=== PATIENT | male | born 1955 | race Caucasian/White ===

== ENCOUNTER 2016-09-09 07:36 | Emergency (ER) | payer MEDICARE, SELFPAY ==
[2016-09-09] MEDS ORDERED: HYDROmorphone 0.5 MG/0.5 ML Syringe IVPUSH ONE (08:12)
[2016-09-09] MEDS ORDERED: Ondansetron 4 MG/2 ML SDV IVPUSH ONE (08:12)
[2016-09-09] MEDS ORDERED: Sodium Chloride 0.9% 1,000 ML IV SCH (08:15)
--- NOTE | 2016-09-09 08:18 | EDM.PDOC ---
ED HPI GI/ABDOMINAL - General Chief Complaint: Abdominal Pain Stated Complaint: SIDE PAIN VOMITING Time Seen by Provider: 09/09/16 08:13 Source: Reports: Patient History Limitations: Reports: No limitations - History of Present Illness INITIAL COMMENTS - FREE TEXT/NARRATIVE: pt woke up with a sudden onset of lef lower abdomanal pain. This would be more supra pupic. Timing/Duration: Reports: Getting worse, Other (pt is rating his pain at a 8. ) Location: LLQ Quality: Reports: fullness Associated Symptoms: Reports: testicular pain, groin pain, nausea/vomiting - Related Data Allergies/ADRs: Allergies Allergy/AdvReac Type Severity Reaction Status Date / Time morphine AdvReac Unknown Vomiting Verified 07/06/16 07:27 penicillin AdvReac Unknown Nausea and Verified 07/06/16 07:27 Vomiting Home Meds: Home Meds Phenytoin 200 mg PO BID 12/12/14 [History] Albuterol [Proventil Neb Soln] 3 ml INH BID 07/21/15 [History] Triamcinolone Acetonide [Kenalog 0.1% Crm] 1 applic TOP ASDIRECTED 07/02/16 [ History] Past Medical History HEENT History: Reports: Impaired vision Other HEENT History: wears reading glasses Cardiovascular History: Reports: Other (see below) Other Cardiovascular History: "broken rib lacerated heart" Respiratory History: Reports: Asthma, COPD Gastrointestinal History: Reports: GERD Musculoskeletal History: Reports: Back pain, chronic, Fracture Other Musculoskeletal History: right ankle with titanium plate, broke back 3 times and shoulder, pelvis, both hips. Plate in neck Neurological History: Reports: Concussion, Head trauma, Seizure Other Oncologic History: melanoma Dermatologic History: Reports: Psoriasis, Other (see below) Other Dermatologic History: skin cancer - Infectious Disease History Infectious Disease History: Reports: Chicken pox, Measles - Past Surgical History Neurological Surgical History: Reports: Spinal fusion Musculoskeletal Surgical History: Reports: Shoulder surgery, Other (see below) Other Musculoskeletal Surgeries/Procedures:: bilateral hip repair Oncologic Surgical History: Reports: Lumpectomy Dermatological Surgical History: Reports: Skin biopsy Social & Family History - Family History Family Medical History: Noncontributory - Tobacco Use Smoking Status *Q: Never Smoker Years of Tobacco use: 20 Used Tobacco, but Quit: Yes Month Tobacco Last Used: 30 years ago Second Hand Smoke Exposure: Yes - Caffeine Use Caffeine Use: Reports: None - Alcohol Use Days Per Week of Alcohol Use: 7 Number of Drinks Per Day: 6 Total Drinks Per Week: 42 - Recreational Drug Use Recreational Drug Use: Yes Drug Use in Last 12 Months: Yes Recreational Drug Type: Reports: Marijuana/Hashish Recreational Drug Use Frequency: Daily Recreational Drug Last Use: yesterday ED ROS GENERAL - Review of Systems Review Of Systems: See Below Constitutional: Reports: diaphoresis, other (Pt states he was very diaphoretic at the time at home when the pain was so bad. ) HEENT: Reports: No symptoms Respiratory: Reports: No Symptoms Cardiovascular: Reports: No symptoms Endocrine: Reports: no symptoms GI/Abdominal: Reports: Abdominal pain, Nausea, Vomiting : Reports: other (Pain in the left testicle. ) Musculoskeletal: Reports: no symptoms Skin: Reports: no symptoms Neurological: Reports: No Symptoms ED EXAM, GI/ABD - Physical Exam Exam: See Below Text/Narrative:: Pt arrived with acute left groin pain. This started suddenly this am. He was very uncomfortable and was quite diaphoretic, he became nauseated and he vomited. Exam Limited By: No limitations General Appearance: alert, moderate distress Eyes: bilateral: normal appearance, EOMI Ears: normal TMs Nose: normal inspection Throat/Mouth: Normal inspection Head: atraumatic Neck: normal inspection Respiratory/Chest: no respiratory distress Cardiovascular: other ( bp was quite elevated. ) GI/Abdominal: tenderness, other ( Pt has definite tenderness in the left supra pupic area. His left testicle is not painful at this time and is not tender to palpate. ) Back Exam: normal inspection Extremities: normal inspection Neurological: alert, oriented Psychiatric: normal affect Course - Vital Signs Last Recorded V/S: Last Vital Signs Temp 36.5 C 09/09/16 07:51 Pulse 68 09/09/16 09:54 Resp 16 09/09/16 09:54 BP 144/84 H 09/09/16 09:54 Pulse Ox 95 09/09/16 09:54 - Orders/Labs/Meds Orders: Active Orders 24 hr Category Date Time Status Iopamidol [Isovue-300 (61%)] Med 09/09/16 13:00 Active 100 ml IV . DIRECTED PRN Sodium Chloride 0.9% [Normal Saline] 1,000 ml Med 09/09/16 08:15 Active IV ASDIRECTED Sodium Chloride 0.9% [Saline Flush] Med 09/09/16 13:00 Active 10 ml FLUSH . DIRECTED PRN Medication Orders Sodium Chloride (Normal Saline) 1,000 mls @ 999 mls/hr IV ASDIRECTED [facility] Last Admin: 09/09/16 08:24 Dose: 999 mls/hr Iopamidol (Isovue-300 (61%)) 100 ml IV . DIRECTED PRN PRN Reason: RADIOLOGY EXAM Stop: 09/09/16 13:01 Last Admin: 09/09/16 10:00 Dose: 100 ml Sodium Chloride (Saline Flush) 10 ml FLUSH . DIRECTED PRN PRN Reason: [id number] EXAM Stop: 09/09/16 13:01 Last Admin: 09/09/16 10:00 Dose: 10 ml Labs: Laboratory Tests 09/09/16 09/09/16 09/09/16 Range/Units 08:25 08:26 08:26 WBC 14.2 H (4.5-11.0) K/uL RBC 4.61 (4.30-5.90) M/uL Hgb 14.4 (12.0-15.0) g/dL Hct 43.9 (40.0-54.0) % MCV 95 (80-98) fL MCH 31 (27-31) pg MCHC 33 (32-36) % Plt Count 363 (150-400) K/uL Neut % (Auto) 74 H (36-66) % Lymph % (Auto) 15 L (24-44) % [place] % (Auto) 8 H (2-6) % Eos % (Auto) 2 (2-4) % Baso % (Auto) 1 (0-1) % Sodium 146 (140-148) mmol/L Potassium 4.4 (3.6-5.2) mmol/L Chloride 106 (100-108) mmol/L Carbon Dioxide 31 (21-32) mmol/L Anion Gap 9.4 (5.0-14.0) mmol/L BUN 18 D (7-18) mg/dL Creatinine 0.9 (0.8-1.3) mg/dL Est Cr Clr Drug Dosing 93.41 mL/min Estimated GFR (MDRD) > 60 (>60) Glucose 99 (74-106) mg/dL Calcium 8.4 L (8.5-10.1) mg/dL Total Bilirubin 0.2 (0.2-1.0) mg/dL AST 22 (15-37) U/L ALT 37 D (12-78) U/L Alkaline Phosphatase 151 H (46-116) U/L C-Reactive Protein (0.0-0.3) mg/dL Total Protein 7.3 (6.4-8.2) g/dL Albumin 3.6 (3.4-5.0) g/dL Globulin 3.7 H (2.3-3.5) g/dL Albumin/Globulin Ratio 1.0 L (1.2-2.2) Urine Color Yellow Urine Appearance Clear Urine pH 6.0 (4.5-8.0) Ur Specific [place] 1.020 (1.008-1.030) Urine Protein Negative (NEGATIVE) mg/dL Urine Glucose (UA) Normal (NEGATIVE) mg/dL Urine Ketones Negative (NEGATIVE) mg/dL Urine Occult Blood Negative (NEGATIVE) Urine Nitrite Negative (NEGAITVE) Urine Bilirubin Negative (NEGATIVE) Urine Urobilinogen Normal (NORMAL) mg/dL Ur Leukocyte Esterase Negative (NEGATIVE) Urine RBC 0-5 (0-5) Urine WBC 0-5 (0-5) Ur Epithelial Cells Not seen Amorphous Sediment Rare Urine Bacteria Not seen Urine Mucus Rare 09/09/16 Range/Units 08:50 WBC (4.5-11.0) K/uL RBC (4.30-5.90) M/uL Hgb (12.0-15.0) g/dL Hct (40.0-54.0) % MCV (80-98) fL MCH (27-31) pg MCHC (32-36) % Plt Count (150-400) K/uL Neut % (Auto) (36-66) % Lymph % (Auto) (24-44) % [place] % (Auto) (2-6) % Eos % (Auto) (2-4) % Baso % (Auto) (0-1) % Sodium (140-148) mmol/L Potassium (3.6-5.2) mmol/L Chloride (100-108) mmol/L Carbon Dioxide (21-32) mmol/L Anion Gap (5.0-14.0) mmol/L BUN (7-18) mg/dL Creatinine (0.8-1.3) mg/dL Est Cr Clr Drug Dosing mL/min Estimated GFR (MDRD) (>60) Glucose (74-106) mg/dL Calcium (8.5-10.1) mg/dL Total Bilirubin (0.2-1.0) mg/dL AST (15-37) U/L ALT (12-78) U/L Alkaline Phosphatase (46-116) U/L C-Reactive Protein 2.94 H (0.0-0.3) mg/dL Total Protein (6.4-8.2) g/dL Albumin (3.4-5.0) g/dL Globulin (2.3-3.5) g/dL Albumin/Globulin Ratio (1.2-2.2) Urine Color Urine Appearance Urine pH (4.5-8.0) Ur Specific [place] (1.008-1.030) Urine Protein (NEGATIVE) mg/dL Urine Glucose (UA) (NEGATIVE) mg/dL Urine Ketones (NEGATIVE) mg/dL Urine Occult Blood (NEGATIVE) Urine Nitrite (NEGAITVE) Urine Bilirubin (NEGATIVE) Urine Urobilinogen (NORMAL) mg/dL Ur Leukocyte Esterase (NEGATIVE) Urine RBC (0-5) Urine WBC (0-5) Ur Epithelial Cells Amorphous Sediment Urine Bacteria Urine Mucus Meds: Medications Generic Name Dose Route Start Last Admin Trade Name Freq PRN Reason Stop Dose Admin Sodium Chloride 1,000 mls @ 999 mls/hr 09/09/16 08:15 09/09/16 08:24 Normal Saline IV 999 mls/hr ASDIRECTED DORA Administration Iopamidol 100 ml 09/09/16 13:00 09/09/16 10:00 Isovue-300 (61%) IV 09/09/16 13:01 100 ml . DIRECTED PRN Administration RADIOLOGY EXAM Sodium Chloride 10 ml 09/09/16 13:00 09/09/16 10:00 Saline Flush FLUSH 09/09/16 13:01 10 ml . DIRECTED PRN Administration [id number] EXAM Discontinued Medications Generic Name Dose Route Start Last Admin Trade Name Freq PRN Reason Stop Dose Admin Hydromorphone HCl 0.5 mg 09/09/16 08:12 09/09/16 08:22 Dilaudid IVPUSH 09/09/16 08:13 0.5 mg ONETIME ONE Administration Hydromorphone HCl 1 mg 09/09/16 09:52 09/09/16 09:58 Dilaudid IVPUSH 09/09/16 09:53 1 mg ONETIME ONE Administration Lorazepam 0.5 mg 09/09/16 08:58 09/09/16 09:09 Ativan IVPUSH 09/09/16 08:59 0.5 mg ONETIME ONE Administration Ondansetron HCl 4 mg 09/09/16 08:12 09/09/16 08:18 Zofran IVPUSH 09/09/16 08:13 4 mg ONETIME ONE Administration - Re-Assessments/Exams Free Text/Narrative Re-Assessment/Exam: 09/09/16 09:58 pt was found to have a wbc which is elevated. His crp is elevated. He had a cat scan which showed a bout 1/2 of his left kidney was infarcted. He has not had trauma to the area. His urine looks completely clear. The rest of the cat scan was normal. 09/09/16 10:01 Departure - Departure Time of Disposition: 10:04 Disposition: DC/Tfer to Acute Hospital 02 Condition: fair Clinical Impression: Ischemia and infarction of kidney, Seizure disorder, AA (alcohol abuse) Referrals: Jonathan Causey MD [Primary Care Provider] - Forms: ED Department Discharge Care Plan Goals: transfer to [facility]. - My Orders Last 24 Hours: My Active Orders 09/09/16 08:15 Sodium Chloride 0.9% [Normal Saline] 1,000 ml IV ASDIRECTED 09/09/16 13:00 Iopamidol [Isovue-300 (61%)] 100 ml IV . DIRECTED PRN Sodium Chloride 0.9% [Saline Flush] 10 ml FLUSH . DIRECTED PRN - Assessment/Plan Last 24 Hours: My Active Orders 09/09/16 08:15 Sodium Chloride 0.9% [Normal Saline] 1,000 ml IV ASDIRECTED 09/09/16 13:00 Iopamidol [Isovue-300 (61%)] 100 ml IV . DIRECTED PRN Sodium Chloride 0.9% [Saline Flush] 10 ml FLUSH . DIRECTED PRN
[2016-09-09] MEDS ORDERED: LORazepam 2 MG/ML MDV IVPUSH ONE (08:58)
--- NOTE | 2016-09-09 09:44 | CT ---
Abdomen Pelvis w Cont Total DLP 674 mGycm. INDICATION: Pain in the left suprapupic area. COMPARISON: None. FINDINGS: Wedge-shaped areas of decreased enhancement involving the left kidney, most marked in the lower pole concerning for infarcts. The proximal and mid portion of the main left renal artery appea r patent allowing for limitations of portal venous phase imaging. Probable benign hemangiomas in the right hepatic lobe. Fat-containing inguinal hernias, larger on the left. Calcified granuloma right lower lobe. Old left rib fractures. Tiny fat-containing periumbilical hernia. Old traumatic change right ilium. Advanced compression fracture of L1, minimally progressed since 02/02/2012. Remainder unr emarkable. IMPRESSION: New wedge-shaped areas of nonenhancement of the left kidney, highly concerning for renal infarct. Pyelonephritis could have a similar appearance. Recommend correlation with urinalysis. Findings discussed with Dr. Barros by telephone at 9:40 AM on 09/09/2016.
[2016-09-09] MEDS ORDERED: HYDROmorphone 1 MG/ML Syringe IVPUSH ONE (09:52)
[2016-09-09 09:55] VITALS: BP 144/84
[2016-09-09] MEDS ORDERED: Albuterol 0.083% 2.5 MG/3 ML Neb Soln NEB ONE (10:17)
[2016-09-09] MEDS ORDERED: Albuterol 0.083% 2.5 MG/3 ML Neb Soln ONE (10:18)
[2016-09-09] MEDS ORDERED: Sodium Chloride 0.9% 10 ML Syringe FLUSH PRN (13:00)
[2016-09-09] MEDS ORDERED: Iopamidol 612 MG/ML 100 ML Bottle IV PRN (13:00)
== END 2016-09-09 10:38 ==
LOC: JP.ED 07:36
DX: N28.0 Ischemia and infarction of kidney (principal); G40.909 Epilepsy, unspecified, not intractable, without status epilepticus; F10.10 Alcohol abuse, uncomplicated; J45.909 Unspecified asthma, uncomplicated; J44.9 Chronic obstructive pulmonary disease, unspecified; K21.9 Gastro-esophageal reflux disease without esophagitis; G89.29 Other chronic pain; M54.9 Dorsalgia, unspecified; Z98.890 Other specified postprocedural states; Z85.828 Personal history of other malignant neoplasm of skin; Z79.899 Other long term (current) drug therapy; Z88.0 Allergy status to penicillin; Z88.5 Allergy status to narcotic agent; Z87.891 Personal history of nicotine dependence
CPT/HCPCS: 36415; 74177; 80053; 81001; 85025; 86140; 94640; 96361; 96374; 96375; 96376; 99285; J1170; J2060; J2405; J7040; J7050; Q9967

== ENCOUNTER 2022-04-27 07:41 | Day surgery (SDC) | payer MEDICARE ==
[~2022-04-27 07:41] MED LIST: Midazolam 1 MG/ML 2 ML SDV ONE; Propofol 200 MG/20 ML SDV ONE; fentaNYL 50 MCG/ML SDV ONE
[2022-04-27] MEDS ORDERED: Lactated Ringers 1,000 ML IV SCH (08:30)
[2022-04-27] MEDS ORDERED: Propofol 200 MG/20 ML SDV ONE (09:28)
[2022-04-27 11:01] VITALS: BP 131/95; PULSE 54
== END 2022-04-27 11:15 | disposition home or self-care (01) ==
LOC: JP.SDS 07:41
PROVIDERS: ATTEND Student in an Organized Health Care Education/Training Program
DX: Z12.11 Encounter for screening for malignant neoplasm of colon (principal); D12.0 Benign neoplasm of cecum; D12.3 Benign neoplasm of transverse colon; D12.5 Benign neoplasm of sigmoid colon; E66.9 Obesity, unspecified; J44.9 Chronic obstructive pulmonary disease, unspecified; K64.8 Other hemorrhoids; Z68.28 Body mass index [BMI] 28.0-28.9, adult; Z79.899 Other long term (current) drug therapy; Z88.0 Allergy status to penicillin; Z88.6 Allergy status to analgesic agent
CPT/HCPCS: 36415; 45380; 85610; 88305; J2250; J2704; J3010; J7120

== ENCOUNTER 2022-06-13 09:09 | Emergency (ER) | payer MEDICARE ==
[2022-06-13 09:30] VITALS: BP 114/81; PULSE 102
[2022-06-13] MEDS ORDERED: Ketorolac 30 MG/ML SDV IM ONE (09:34)
== END 2022-06-13 11:20 | disposition home or self-care (01) ==
LOC: JP.ED 09:09
DX: R07.89 Other chest pain (principal); J44.9 Chronic obstructive pulmonary disease, unspecified; Z88.5 Allergy status to narcotic agent; Z88.0 Allergy status to penicillin; Z79.899 Other long term (current) drug therapy; W00.0XXA Fall on same level due to ice and snow, initial encounter
CPT/HCPCS: 71101-26; 71101-LT; 73030-26-LT; 73030-LT; 96372; 99283; 99284

== ENCOUNTER 2023-07-18 06:48 | Emergency (ER) | payer MEDICARE ==
[2023-07-18] MEDS: HYDROmorphone 0.5 MG/0.5 ML Syringe IVPUSH PRN (08:04)
[2023-07-18] MEDS: Sodium Chloride 0.9% 1,000 ML IV ONE (08:04)
[2023-07-18 08:07] VITALS: BP 117/77; PULSE 91
[2023-07-18 08:11] LABS: BASE EXCESS VENOUS 2.4 mm/L; BICARBONATE,VENOUS 25.7 mmol/L; CARBOXYHEMOGLOBIN 1.7 % (0.0-1.6); METHEMOGLOBIN 0.8 %; O2 SATURATION VENOUS 96.2; OXYHEMOGLOBIN 93.8 %; PH,VENOUS 7.456 (7.350-7.450); PO2 VENOUS 76.8 mm/Hg; TOTAL HEMOGLOBIN 14.1 g/dL (13.5-18.0)
[2023-07-18 08:13] LABS: BASOPHILS ABSOLUTE AUTO 0.05 K/uL (0.00-0.10); BASOPHILS PERCENT AUTO 0.4 % (0.1-1.3); EOSINOPHILS ABSOLUTE AUTO 0.05 K/uL (0.00-0.40); EOSINOPHILS PERCENT AUTO 0.4 % (0.0-5.4); HEMATOCRIT 39.7 % (38.4-49.7); HEMOGLOBIN 13.7 g/dL (12.9-16.9); IMMATURE GRAN ABSOLUTE AUTO 0.03 K/uL (0.00-0.23); IMMATURE GRAN PERCENT AUTO 0.3 % (0.0-0.7); LYMPHOCYTES ABSOLUTE AUTO 0.69 K/uL (0.8-3.3); LYMPHOCYTES PERCENT AUTO 5.8 % (11.4-47.7); MEAN CORPUSCULAR HEMOGLOBIN 32.7 pg (31.6-35.5); MEAN CORPUSCULAR HGB CONC 34.5 g/dL (31.6-35.5); MEAN CORPUSCULAR VOLUME 94.7 fL (81.4-99.0); MONOCYTES ABSOLUTE AUTO 1.11 K/uL (0.20-0.90); MONOCYTES PERCENT AUTO 9.4 % (3.3-12.6); NEUTROPHILS ABSOLUTE AUTO 9.87 K/uL (1.0-7.6); NEUTROPHILS PERCENT AUTO 83.7 % (40.0-78.1); PLATELET COUNT,PLT 295 K/uL (130-375); RED BLOOD CELL COUNT 4.19 M/uL (4.14-5.76); WHITE BLOOD CELL COUNT,WBC 11.8 K/uL (3.2-11.0)
[2023-07-18 08:30] LABS: PROTHROMBIN TIME 61.2 sec (9.2-10.6)
[2023-07-18 08:34] LABS: A/G RATIO 0.9 (1.2-2.2); ALANINE AMINOTRANSFERASE,ALT 32 U/L (12-78); ALBUMIN 3.3 g/dL (3.4-5.0); ALKALINE PHOSPHATASE 94 U/L (46-116); ASPARTATE AMNIOTRANSFERASE,AST 25 U/L (15-37); BILIRUBIN TOTAL 0.9 mg/dL (0.2-1.0); BLOOD UREA NITROGEN,BUN 9 mg/dL (7-18); CALCIUM 7.9 mg/dL (8.5-10.1); CARBON DIOXIDE,CO2 27 mmol/L (21-32); CHLORIDE,CL 98 mmol/L (100-108); CREATININE 0.8 mg/dL (0.8-1.3); EST CRCL DRUG DOSING (CG) 101.32 mL/min; ESTIMATED GFR 96 mL/min (>60); GLUCOSE RANDOM 101 mg/dL (74-106); PROTEIN TOTAL,TP 6.9 g/dL (6.4-8.2); SODIUM,NA 134 mmol/L (140-148)
[2023-07-18 08:36] LABS: INR 6.8
[2023-07-18] MEDS: Ondansetron 4 MG/2 ML SDV IVPUSH PRN (08:42)
[2023-07-18] MEDS: Phytonadione 5 MG in Sodium Chloride 0.9% 50 ML IV ONE (08:51)
[2023-07-18 09:02] LABS: CORONAVIRUS COVID-19 NAA NEGATIVE (NEGATIVE); INFLUENZA A NAA NEGATIVE (NEGATIVE); INFLUENZA B NAA NEGATIVE (NEGATIVE); RESPIRATORY SYNCYTIAL VIR NAA NEGATIVE (NEGATIVE)
[2023-07-18] MEDS: Prochlorperazine 10 MG/2 ML SDV IVPUSH ONE (09:03)
[2023-07-18] MEDS: Iopamidol 612 MG/ML 100 ML Bottle IV ONE (09:22)
[2023-07-18] MEDS: Sodium Chloride 0.9% 80 ML IV SCH (09:22)
== END 2023-07-18 11:52 | disposition home or self-care (01) ==
LOC: JP.ED 06:48
DX: S22.31XA Fracture of one rib, right side, initial encounter for closed fracture (principal); S20.211A Contusion of right front wall of thorax, initial encounter; T45.511A Poisoning by anticoagulants, accidental (unintentional), initial encounter; G89.29 Other chronic pain; J45.909 Unspecified asthma, uncomplicated; Z88.0 Allergy status to penicillin; Z88.5 Allergy status to narcotic agent; Z79.899 Other long term (current) drug therapy; Z79.01 Long term (current) use of anticoagulants; W01.0XXA Fall on same level from slipping, tripping and stumbling without subsequent striking against object, initial encounter
CPT/HCPCS: 0241U; 36415; 71260; 74177; 80053; 80307; 82803; 85025; 85610; 96361; 96374; 96375; 99284; J0780; J1170; J2405; J3430; J3490; J7030; Q9967